=== PATIENT | female | born 1990 | race Caucasian/White ===

== ENCOUNTER 2016-08-04 14:17 | Outpatient (CLI) | payer MEDICAID | END 2016-08-04 23:59 | DX: R20.2 Paresthesia of skin (principal) ==

== ENCOUNTER 2017-01-18 06:14 | Outpatient (CLI) | payer MEDICAID | END 2017-01-18 06:15 | disposition home or self-care (01) | LOC: LAB.R 06:14 | PROVIDERS: ATTEND Nurse Practitioner Gerontology | DX: Z11.3 Encounter for screening for infections with a predominantly sexual mode of transmission (principal) | CPT/HCPCS: 87491; 87591 ==

== ENCOUNTER 2018-01-27 08:42 | Outpatient (CLI) | payer MEDICAID ==
--- NOTE | 2018-01-27 10:40 | Ultrasound Report ---
Procedure Date: 01/27/2018 Accession Number: [id number] / [id number] Procedure: US - Breast Unilateral Limited CPT Code: FULL RESULT: EXAM: Breast Unilateral Limited, Breast Unilateral Limited DATE: 01/27/2018 9:59 AM CLINICAL HISTORY: LT BREAST LUMP COMPARISON: None. TECHNIQUE: Grayscale and limited color Doppler ultrasound images of the palpable lump region of the left breast were obtained. FINDINGS: A 2 mm tall, 5 mm wide cystic area 1 cm deep to the skin with a ducts leading towards the skin surface is identified. There is no associated abnormality by color Doppler and no solid soft tissue mass component. Findings are consistent with a sebaceous cyst. IMPRESSION: Sebaceous cyst. Benign finding. BI-RADS 2 RADIA
--- NOTE | 2018-01-27 10:40 | Ultrasound Report ---
Procedure Date: 01/27/2018 Accession Number: [id number] / [id number] Procedure: US - Breast Unilateral Limited CPT Code: FULL RESULT: EXAM: Breast Unilateral Limited, Breast Unilateral Limited DATE: 01/27/2018 9:59 AM CLINICAL HISTORY: LT BREAST LUMP COMPARISON: None. TECHNIQUE: Grayscale and limited color Doppler ultrasound images of the palpable lump region of the left breast were obtained. FINDINGS: A 2 mm tall, 5 mm wide cystic area 1 cm deep to the skin with a ducts leading towards the skin surface is identified. There is no associated abnormality by color Doppler and no solid soft tissue mass component. Findings are consistent with a sebaceous cyst. IMPRESSION: Sebaceous cyst. Benign finding. BI-RADS 2 RADIA
== END 2018-01-27 08:43 | disposition home or self-care (01) ==
LOC: DI 08:42
PROVIDERS: ATTEND Nurse Practitioner
DX: N60.82 Other benign mammary dysplasias of left breast (principal); N60.81 Other benign mammary dysplasias of right breast
CPT/HCPCS: 76642

== ENCOUNTER 2018-11-24 13:48 | Outpatient (CLI) | payer MEDICAID ==
--- NOTE | 2018-11-24 15:29 | XRAY Report ---
Reason: JAW PAIN Procedure Date: 11/24/2018 Accession Number: [id number] / [id number] Procedure: XR - Mandible Bilat CPT Code: FULL RESULT: EXAM: MANDIBLE RADIOGRAPHY EXAM DATE: 11/24/2018 02:18 PM. HISTORY: Jaw pain. COMPARISONS: None. TECHNIQUE: 4 views. FINDINGS: Bones: Normal. No fractures or bone lesions. Temporomandibular Joints: Normal. The temporomandibular joints are normally located and symmetric. Sinuses: Normal. No opacities or fluid levels. Other: Normal. No soft tissue swelling. IMPRESSION: Normal mandible radiography. RADIA
== END 2018-11-24 13:49 | disposition home or self-care (01) ==
LOC: DI 13:48
PROVIDERS: ATTEND Family Medicine
DX: R68.84 Jaw pain (principal)
CPT/HCPCS: 70110

== ENCOUNTER 2019-03-22 08:50 | Emergency (ER) | payer MEDICAID ==
[2019-03-22 09:14] VITALS: BP 151/64
[2019-03-22] MEDS ORDERED: DEXAMETHASONE 10 MG/ML VIAL PO STA (09:32)
[2019-03-22] MEDS ORDERED: CHERRY SYRUP 10 ML UDC PO ONE (09:32)
--- NOTE | 2019-03-22 09:35 | ED Physician Documentation ---
PD HPI URI - Stated complaint Stated Complaint: COLD SX/SORE THROAT - Chief complaint Chief Complaint: General - History obtained from History obtained from: Patient - History of Present Illness Timing - onset: How many days ago (2) Timing duration: Days (2) Timing details: Gradual onset, Still present Associated symptoms: Nasal congestion, Rhinorrhea, Sore throat, Dry cough Contributing factors: Sick contact Improves by: Rest, Medication Similar symptoms before: Diagnosis (URI) Recently seen: Not recently seen - Additional information Additional information: 28-year-old female with a 2-day history of cough congestion and shakiness has been taking some Dimetapp at night. She states that she has coughed up some blood-tinged sputum and she has not had fever. She does have a sore throat and muffled hearing from the right ear. Review of Systems Constitutional: reports: Fatigue, Sweats. denies: Fever Eyes: denies: Decreased vision Ears: reports: Loss of hearing Nose: reports: Rhinorrhea / runny nose, Congestion Throat: reports: Sore throat Cardiac: denies: Chest pain / pressure, Palpitations Respiratory: reports: Cough. denies: Dyspnea PD PAST MEDICAL HISTORY - Past Medical History Past Medical History: No - Past Surgical History Past Surgical History: No - Present Medications Home Medications: Ambulatory Orders Medication Instructions Recorded Confirmed Cyclobenzaprine [Flexeril] 10 mg PO TID PRN #20 tablet 06/22/15 Polyethylene Glycol 3350 [Miralax] 17 gm PO DAILY PRN #1 bottle 06/22/15 Azithromycin [Zithromax] 250 mg PO DAILY #6 tablet 03/22/19 Benzonatate [Tessalon Perle] 100 - 200 mg PO TID PRN #30 capsule 03/22/19 - Allergies Allergies/Adverse Reactions: Allergies Allergy/AdvReac Type Severity Reaction Status Date / Time No Known Drug Allergies Allergy Verified 06/22/15 11:37 - Social History Does the pt smoke?: No Smoking Status: Never smoker Does the pt drink ETOH?: No Does the pt have substance abuse?: No - Immunizations Immunizations are current?: Yes - POLST Patient has POLST: No PD ED PE NORMAL - Vitals Vital signs reviewed: Yes (tachypneic and hypertensive) - General General: Alert and oriented X 3, No acute distress, Well developed/nourished, Other (The patient appears anxious ) - HEENT HEENT: Atraumatic, PERRL, EOMI, Other (right TM is clear the left is inflamed. The pharynx is inflamed with swelling and mild exudate. 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, No motor deficit, No sensory deficit, Normal speech Eye Opening: Spontaneous Motor: Obeys Commands Verbal: Oriented GCS Score: 15 - Psych Psych: Normal mood, Normal affect Results - Vitals Vitals: Vital Signs - 24 hr 03/22/19 09:08 Temperature 36.6 C Heart Rate 94 Respiratory 28 H Rate Blood Pressure 151/64 H O2 Saturation 100 Oxygen O2 Source Nasal cannula - Labs Labs: Laboratory Tests 03/22/19 09:20 Group A Strep Rapid Negative PD MEDICAL DECISION MAKING - ED course Complexity details: reviewed results, re-evaluated patient, considered differential, d/w patient ED course: 28 y/o female with URI, cough and sore throat has a negative rapid strep and evidence of OM on the left. I have cautioned the patient that the infection underlying is likely viral but abx will help with the OM. She is given decadron and we will put her on a course of azithro Departure - Departure Disposition: 01 Home, Self Care Clinical Impression: Otitis media Qualifiers: Otitis media type: suppurative Laterality: left Recurrence: non-recurrent Spontaneous tympanic membrane rupture: without spontaneous rupture Condition: Stable Instructions: ED Otitis Media Acute Adult, ED Upper Resp Infec Abx Tx Follow-Up: Shayy Wells, FI[employer] [Primary Care Provider] - Prescriptions: Azithromycin [Zithromax] 250 mg PO DAILY #6 tablet Benzonatate [Tessalon Perle] 100 - 200 mg PO TID PRN #30 capsule PRN Reason: Cough
== END 2019-03-22 10:16 | disposition home or self-care (01) ==
LOC: ED 08:50
DX: H66.002 Acute suppurative otitis media without spontaneous rupture of ear drum, left ear (principal)
CPT/HCPCS: 87070; 87430; 99283; A9270

== ENCOUNTER 2019-07-06 13:53 | Outpatient (CLI) | payer MEDICAID ==
--- NOTE | 2019-07-06 14:31 | XRAY Report ---
Reason: JOINT PAIN Procedure Date: 07/06/2019 Accession Number: [id number] / [id number] Procedure: XRN - Hip w/Pelvis 2-3V RT CPT Code: Final Report FULL RESULT: EXAM: RIGHT HIP RADIOGRAPHY EXAM DATE: 07/06/2019 02:07 PM. CLINICAL HISTORY: JOINT PAIN. COMPARISON: LUMBAR SPINE 2 VIEW 01/09/2016 10:51 AM. TECHNIQUE: 2 views. FINDINGS: Bones: Normal. No fractures or bone lesion. Joints: Normal. No dislocation. The hip joint space is preserved. Soft Tissues: Normal. No soft tissue swelling. IMPRESSION: Normal hip radiography. RADIA
== END 2019-07-06 13:54 | disposition home or self-care (01) ==
LOC: DI.N 13:53
PROVIDERS: ATTEND Family Medicine
DX: M25.551 Pain in right hip (principal)

== ENCOUNTER 2019-08-13 12:04 | Emergency (ER) | payer MEDICAID ==
[2019-08-13 12:13] VITALS: BP 123/62
[2019-08-13 12:27] LABS: BASOPHILS % (AUTO) 0.5 %; EOSINOPHILS # (AUTO) 0.1 10^3/uL (0.0-0.7); EOSINOPHILS % (AUTO) 1.1 %; HGB - HEMOGLOBIN 14.4 g/dL (12.0-16.0); LYMPHOCYTES % (AUTO) 31.5 %; MEAN CORPUSCULAR HEMOGLOBIN 30.1 pg (27.0-31.0); MEAN CORPUSCULAR HGB CONC 31.6 g/dL (32.0-36.0); MEAN CORPUSCULAR VOLUME 95.2 fL (81.0-99.0); MEAN PLATELET VOLUME 8.3 fL (7.9-10.8); MONOCYTES # (AUTO) 0.4 10^3/uL (0.0-1.0); MONOCYTES % (AUTO) 6.4 %; NEUTROPHILS # (AUTO) 3.8 10^3/uL (1.5-6.6); NEUTROPHILS % (AUTO) 60.2 %; PLT - PLATELET COUNT 226 10^3/uL (130-450); RED BLOOD COUNT 4.78 10^6/uL (4.20-5.40); WHITE BLOOD COUNT 6.3 x10^3/uL (4.8-10.8)
[2019-08-13 12:48] LABS: ALBUMIN 4.3 g/dL (3.2-5.5); ALBUMIN/GLOBULIN RATIO 1.5 (1.0-2.2); BILIRUBIN,TOTAL 1.2 mg/dL (0.2-1.0); CALCIUM 9.5 mg/dL (8.5-10.3); CREATININE 0.6 mg/dL (0.4-1.0); TOTAL PROTEIN 7.2 g/dL (6.7-8.2)
--- NOTE | 2019-08-13 13:09 | ED Physician Documentation ---
PD HPI ABD PAIN - Stated complaint Stated Complaint: L SIDE ABD/BACK PX - Chief complaint Chief Complaint: Abd Pain - History obtained from History obtained from: Patient - History of Present Illness Timing - onset: Yesterday Timing - duration: Days (2) Timing - details: Gradual onset, Still present, Waxing and waning Quality: Cramping, Aching, Pain Location: LLQ Radiation: Left flank. No: Chest Improved by: No: Eating, Position Worsened by: Moving, Breathing, Palpation. No: Eating, Position Associated symptoms: Nausea. No: Fever, Diarrhea, Constipation, Dysuria, Hematuria, Chest pain, Near syncope / syncope, Loss of appetite Similar symptoms before: Has not had sx before Recently seen: Not recently seen Review of Systems Constitutional: denies: Fever, Chills Nose: denies: Rhinorrhea / runny nose, Congestion Throat: denies: Sore throat Respiratory: denies: Cough GI: reports: Abdominal Pain, Nausea. denies: Abdominal Swelling, Vomiting, Constipation, Diarrhea, Bloody / black stool : reports: LMP (07/23/19). denies: Dysuria, Frequency, Hematuria, Discharge, Missed period Skin: denies: Rash, Lesions Neurologic: denies: Generalized weakness, Near syncope PD PAST MEDICAL HISTORY - Past Medical History Cardiovascular: None Respiratory: None Neuro: None Endocrine/Autoimmune: None GI: None - Past Surgical History Past Surgical History: No - Present Medications Home Medications: Ambulatory Orders Medication Instructions Recorded Confirmed Cyclobenzaprine [Flexeril] 10 mg PO TID PRN #20 tablet 06/22/15 Polyethylene Glycol 3350 [Miralax] 17 gm PO DAILY PRN #1 bottle 06/22/15 Azithromycin [Zithromax] 250 mg PO DAILY #6 tablet 03/22/19 Benzonatate [Tessalon Perle] 100 - 200 mg PO TID PRN #30 capsule 03/22/19 Docusate Sodium 100 mg PO DAILY #30 capsule 08/13/19 Naproxen 500 mg PO BID #20 tablet 08/13/19 - Allergies Allergies/Adverse Reactions: Allergies Allergy/AdvReac Type Severity Reaction Status Date / Time No Known Drug Allergies Allergy Verified 06/22/15 11:37 - Social History Does the pt smoke?: No Smoking Status: Never smoker Does the pt drink ETOH?: No Does the pt have substance abuse?: No - Immunizations Immunizations are current?: Yes - POLST Patient has POLST: No PD ED PE NORMAL - Vitals Vital signs reviewed: Yes - General General: Alert and oriented X 3, No acute distress, Well developed/nourished - HEENT HEENT: Moist mucous membranes, Pharynx benign - Neck Neck: Supple, no meningeal sign, No adenopathy - Cardiac Cardiac: RRR, No murmur - Respiratory Respiratory: Clear bilaterally - Abdomen Abdomen: Normal bowel sounds, Soft, Non distended, No organomegaly, Other (tender LLQ and left lateral abd to the left flank. No rash nor sores. ) - Female Female : Deferred - Rectal Rectal: Deferred - Derm Derm: Normal color, Warm and dry, No rash - Extremities Extremities: No edema, No calf tenderness / cord Results - Vitals Vitals: Vital Signs - 24 hr 08/13/19 12:09 Temperature 36.1 C L Heart Rate 73 Respiratory 16 Rate Blood Pressure 123/62 O2 Saturation 99 Oxygen O2 Source Room air - Labs Labs: Laboratory Tests 08/13/19 08/13/19 08/13/19 12:24 12:24 12:30 WBC 6.3 RBC 4.78 Hgb 14.4 Hct 45.5 MCV 95.2 MCH 30.1 MCHC 31.6 L RDW 13.0 Plt Count 226 MPV 8.3 Neut # (Auto) 3.8 Lymph # (Auto) 2.0 [place] # (Auto) 0.4 Eos # (Auto) 0.1 Baso # (Auto) 0.0 Absolute Nucleated RBC 0.00 Nucleated RBC % 0.0 Sodium 140 Potassium 3.9 Chloride 106 Carbon Dioxide 27 Anion Gap 7.0 BUN 7 Creatinine 0.6 Estimated GFR (MDRD) 117 Glucose 91 Calcium 9.5 Total Bilirubin 1.2 H AST 16 ALT 13 Alkaline Phosphatase 41 L Total Protein 7.2 Albumin 4.3 Globulin 2.9 Albumin/Globulin Ratio 1.5 Lipase 27 Urine Color YELLOW Urine Clarity CLEAR Urine pH 7.0 Ur Specific [place] 1.010 Urine Protein NEGATIVE Urine Glucose (UA) NEGATIVE Urine Ketones NEGATIVE Urine Occult Blood NEGATIVE Urine Nitrite NEGATIVE Urine Bilirubin NEGATIVE Urine Urobilinogen 0.2 (NORMAL) Ur Leukocyte Esterase SMALL H Urine RBC None Seen Urine WBC 4-5 Ur Squamous Epith Cells FEW Squamous Urine Bacteria Rare Ur Microscopic Review INDICATED Urine Culture Comments INDICATED Urine HCG, Qual NEGATIVE - Rads (name of study) KUB CT Radiology: Prelim report reviewed (no acute process to account for pain), See rad report PD MEDICAL DECISION MAKING - ED course Complexity details: reviewed results (UA, labs, and CT without obvious finding. Consider US to ensure good ovarian flow, though CT did not show any inflammation. ), re-evaluated patient, considered differential (opted for CT over U/S as pain a bit higher and to flank. Consider stone, divertic, ovarian cyst leaking, other process. Has some tenderness to palpation along muscle line so could be oblique rectus muscle. ), d/w patient Departure - Departure Disposition: 01 Home, Self Care Clinical Impression: Left lower quadrant abdominal pain Condition: Stable Record reviewed to determine appropriate education?: Yes Instructions: ED Abdominal Pain Unkn Cause Follow-Up: OSMAN KASPER MD [Primary Care Provider] - Prescriptions: Docusate Sodium 100 mg PO DAILY #30 capsule Naproxen 500 mg PO BID #20 tablet Comments: This sounds likely to be either muscular pain or some lower intestinal pain. The CT scan did not show any acute obvious abnormality. If persistent pain in the area, follow-up with your primary care and they could consider a pelvic ultrasound to evaluate the ovaries and such. There was no obvious abnormality noted on the CT scan of them. For now I would suggest using some anti-inflammatory such as naproxen 2 or 3 times daily for the next week. Add Tylenol every 4-6 hours if needed for pain. Also a daily stool softener for the next week or so. Recheck if not improved well over the next several days. Discharge Date/Time: 08/13/19 15:18
[2019-08-13 13:22] LABS: BILIRUBIN,URINE NEGATIVE (NEGATIVE); GLUCOSE, URINE (UA) NEGATIVE (NEGATIVE); KETONES,URINE (UA) NEGATIVE (NEGATIVE); LEUKOCYTE ESTERASE, URINE SMALL (NEGATIVE); NITRITE,URINE NEGATIVE (NEGATIVE); OCCULT BLOOD,URINE NEGATIVE (NEGATIVE); PROTEIN,URINE NEGATIVE (NEGATIVE); UROBILINOGEN,URINE 0.2 (NORMAL) E.U./dL (NORMAL)
[2019-08-13 13:23] LABS: CLARITY,URINE CLEAR (CLEAR); HCG UR QUAL NEGATIVE
[2019-08-13] MEDS ORDERED: ACETAMINOPHEN 325 MG TABLET PO STA (13:29)
[2019-08-13] MEDS ORDERED: IBUPROFEN 600 MG TABLET PO STA (13:29)
[2019-08-13 13:30] LABS: BACTERIA,URINE Rare /HPF (None Seen); RBC,URINE None Seen /HPF (0-5); SQUAMOUS EPITHELIAL CELL,UR FEW Squamous (<= Few)
[2019-08-13] MEDS: ONDANSETRON ODT 4 MG TABLET TL STA ×2 (13:36→14:21)
--- NOTE | 2019-08-13 14:28 | CT Report ---
Reason: left abd/flank pain for 4 days Procedure Date: 08/13/2019 Accession Number: [id number] / [id number] Procedure: CT - Abdomen/Pelvis WO CPT Code: Final Report FULL RESULT: EXAM: CT ABDOMEN AND PELVIS (CT KUB) EXAM DATE: 08/13/2019 01:56 PM. CLINICAL HISTORY: Left abd/flank pain for 4 days. COMPARISONS: None. TECHNIQUE: Routine axial helical CT imaging was performed through the abdomen and pelvis without IV contrast. Reconstructions: Coronal and sagittal. In accordance with CT protocol optimization, one or more of the following dose reduction techniques were utilized for this exam: automated exposure control, adjustment of mA and/or KV based on patient size, or use of iterative reconstructive technique. FINDINGS: Lung Bases: Unremarkable. Right Kidney/Ureter: No stones, hydronephrosis, or hydroureter. No perinephric fat stranding. Left Kidney/Ureter: No stones, hydronephrosis, or hydroureter. No perinephric fat stranding. Other Solid Organs: Noncontrast images of the solid organs are grossly unremarkable. Gallbladder/Bile Ducts: Unremarkable. Peritoneal Cavity: No dilated or thick-walled bowel. There is a small amount of free fluid within the pelvis. No intraperitoneal free air. No enlarged mesenteric or retroperitoneal lymph nodes. The appendix is normal. Pelvic Organs: No bladder stones or wall thickening. Noncontrast images of the visualized pelvic organs are unremarkable. Vasculature: Unremarkable. Other: None. IMPRESSION: Negative noncontrast CT of the abdomen and pelvis. No urinary tract stones or obstruction. RADIA
== END 2019-08-13 15:18 | disposition home or self-care (01) ==
LOC: ED 12:04
DX: R10.32 Left lower quadrant pain (principal)
CPT/HCPCS: 36415; 74176; 80053; 81001; 81025; 83690; 85025; 87086; 99284; A9270; 81003

== ENCOUNTER 2019-08-21 17:04 | Outpatient (CLI) | payer MEDICAID ==
--- NOTE | 2019-08-22 15:41 | Ultrasound Report ---
Reason: ABDOMINAL PAIN,LLQ Procedure Date: 08/21/2019 Accession Number: [id number] / [id number] Procedure: US - Pelvic w/Transvaginal CPT Code: Final Report FULL RESULT: EXAM: PELVIC ULTRASOUND EXAM DATE: 08/21/2019 05:40 PM. CLINICAL HISTORY: ABDOMINAL PAIN, LLQ. COMPARISON: ABDOMEN/PELVIS W/O 08/13/2019 1:54 PM. TECHNIQUE: Realtime transabdominal pelvic scan performed to identify the uterus and adnexa and as an overview of other pelvic structures, followed by transvaginal scan to provide greater detail of the uterus and adnexa, with static image documentation. FINDINGS: Uterus: 8.9 x 4.4 x 5.9 cm, volume 120 cc. Anteverted position. Normal overall size and echotexture. Masses: None. Endometrium: 11 mm. Mild heterogeneity without evidence of focal abnormality. Cervix: Unremarkable. Right Ovary: 3.2 x 2.1 x 2.0 cm, volume 7.0 cc. Normal echotexture and blood flow. Left Ovary: 2.5 x 2.5 x 2.2 cm, volume 7.3 cc. Normal echotexture and blood flow. Free Fluid: None. Other: None. IMPRESSION: Negative pelvic ultrasound. No sonographic findings to account for the patient's presentation. RADIA
== END 2019-08-21 17:05 | disposition home or self-care (01) ==
LOC: DI 17:04
PROVIDERS: ATTEND Family Medicine
DX: R10.32 Left lower quadrant pain (principal)
CPT/HCPCS: 76830; 76856

== ENCOUNTER 2019-10-10 17:00 | Outpatient (CLI) | payer MEDICAID ==
[2019-10-11 21:05] LABS: CANDIDA GROUP DNA POSITIVE (NEGATIVE); CANDIDA KRUSEI DNA NEGATIVE (NEGATIVE); TRICHOMONAS VAGINALIS DNA NEGATIVE (NEGATIVE)
== END 2019-10-10 23:59 | disposition home or self-care (01) ==
LOC: LAB.R 17:00
PROVIDERS: ATTEND Obstetrics & Gynecology
DX: N76.0 Acute vaginitis (principal); B96.89 Other specified bacterial agents as the cause of diseases classified elsewhere
CPT/HCPCS: 87661; 87801

== ENCOUNTER 2020-05-21 08:00 | Outpatient (CLI) | payer MEDICAID | END 2020-05-21 23:59 | disposition home or self-care (01) | LOC: LAB.WCP 08:00 | PROVIDERS: ATTEND Physician Assistant Medical | DX: Z71.89 Other specified counseling (principal) | CPT/HCPCS: 36415; 86317 ==

== ENCOUNTER 2020-05-22 08:00 | Outpatient (CLI) | payer MEDICAID | END 2020-05-22 23:59 | disposition home or self-care (01) | LOC: LAB.WCP 08:00 | PROVIDERS: ATTEND Physician Assistant Medical | DX: Z71.89 Other specified counseling (principal) | CPT/HCPCS: 36415; 81599; 86480 ==

== ENCOUNTER 2020-07-23 07:00 | Outpatient (CLI) | payer MEDICAID | END 2020-07-23 23:59 | disposition home or self-care (01) | LOC: LAB.N 07:00 | PROVIDERS: ATTEND Family Medicine | DX: R82.81 Pyuria (principal) | CPT/HCPCS: 87086 ==

== ENCOUNTER 2020-08-08 20:02 | Emergency (ER) | payer MEDICAID ==
[2020-08-08 20:33] LABS: BASOPHILS % (AUTO) 0.4 %; EOSINOPHILS # (AUTO) 0.1 10^3/uL (0.0-0.7); EOSINOPHILS % (AUTO) 1.3 %; HGB - HEMOGLOBIN 15.3 g/dL (12.0-16.0); LYMPHOCYTES # (AUTO) 2.6 10^3/uL (1.5-3.5); LYMPHOCYTES % (AUTO) 34.9 %; MEAN CORPUSCULAR HEMOGLOBIN 30.6 pg (27.0-31.0); MEAN CORPUSCULAR VOLUME 92.8 fL (81.0-99.0); MEAN PLATELET VOLUME 8.1 fL (7.9-10.8); MONOCYTES # (AUTO) 0.5 10^3/uL (0.0-1.0); NEUTROPHILS # (AUTO) 4.2 10^3/uL (1.5-6.6); NEUTROPHILS % (AUTO) 56.1 %; PLT - PLATELET COUNT 275 10^3/uL (130-450); RED CELL DISTRIBUTION WIDTH 12.6 % (12.0-15.0); WHITE BLOOD COUNT 7.4 x10^3/uL (4.8-10.8)
[2020-08-08 20:42] LABS: BILIRUBIN,URINE NEGATIVE (NEGATIVE); CLARITY,URINE CLEAR (CLEAR); GLUCOSE, URINE (UA) NEGATIVE (NEGATIVE); HCG UR QUAL NEGATIVE; KETONES,URINE (UA) NEGATIVE (NEGATIVE); LEUKOCYTE ESTERASE, URINE TRACE (NEGATIVE); NITRITE,URINE NEGATIVE (NEGATIVE); OCCULT BLOOD,URINE NEGATIVE (NEGATIVE); PROTEIN,URINE NEGATIVE (NEGATIVE); UROBILINOGEN,URINE 0.2 (NORMAL) E.U./dL (NORMAL)
[2020-08-08 20:48] LABS: ALBUMIN 4.4 g/dL (3.2-5.5); ALBUMIN/GLOBULIN RATIO 1.4 (1.0-2.2); CALCIUM 8.9 mg/dL (8.5-10.3); CREATININE 0.7 mg/dL (0.4-1.0); TOTAL PROTEIN 7.5 g/dL (6.7-8.2)
[2020-08-08 20:53] LABS: BACTERIA,URINE Rare /HPF (None Seen); RBC,URINE None Seen /HPF (0-5); SQUAMOUS EPITHELIAL CELL,UR FEW Squamous (<= Few)
--- NOTE | 2020-08-08 21:02 | ED Physician Documentation ---
PD HPI ABD PAIN - Stated complaint Stated Complaint: BACK PX - Chief complaint Chief Complaint: Abd Pain - History obtained from History obtained from: Patient - History of Present Illness Timing - onset: How many months ago (1) Timing - duration: Months (1) Timing - details: Gradual onset, Waxing and waning Quality: Aching, Sharp, Pain Location: LLQ Radiation: Left flank Improved by: Laying still. No: BM Worsened by: Moving. No: Palpation Associated symptoms: Nausea, Constipation (somewhat decreased with BMs about every 3rd day. Using Doccusate.). No: Fever, Vomiting, Diarrhea, Dysuria (had UA concerning for UTI and was on Bactrim for 5 days, but no change in the pain. She says urine culture resulted negative though.), Hematuria, Vaginal bleeding, Vaginal dc Recently seen: Clinic (Initially seen in clinic and had UA suggestive UTI and Rx with abx. Not improved. Then treated with NSAIDs, and then seen in Walk In and Rx with muscle relaxant. Still not improved.) Review of Systems Constitutional: denies: Fever, Chills Nose: denies: Rhinorrhea / runny nose, Congestion Throat: denies: Sore throat Cardiac: denies: Chest pain / pressure Respiratory: denies: Cough GI: reports: Abdominal Pain, Nausea. denies: Vomiting, Constipation (she says not constipated but is having BMs every 3 days, not large nor hard.), Diarrhea, Bloody / black stool : denies: Dysuria, Frequency, Discharge Skin: denies: Rash PD PAST MEDICAL HISTORY - Past Medical History Past Medical History: No Cardiovascular: None Respiratory: None Neuro: None Endocrine/Autoimmune: None GI: None CREDIT CHECKER: None : None HEENT: None Psych: None Musculoskeletal: None Derm: None - Past Surgical History Past Surgical History: No - Present Medications Home Medications: Ambulatory Orders Medication Instructions Recorded Confirmed HYDROcod/ACETAM 5/325 [[place] 5/325] 1 ea PO Q6H PRN #10 tab 08/08/20 Naproxen Sodium [Anaprox Ds] 550 mg PO BID #20 tab 08/08/20 polyethylene glycoL 3350 [Miralax] 17 gm PO BID #1 bottle 08/08/20 tiZANidine [Zanaflex] 4 mg PO Q8H PRN #25 tab 08/08/20 - Allergies Allergies/Adverse Reactions: Allergies Allergy/AdvReac Type Severity Reaction Status Date / Time No Known Drug Allergies Allergy Verified 08/08/20 20:08 - Social History Does the pt smoke?: No Smoking Status: Never smoker Does the pt drink ETOH?: No Does the pt have substance abuse?: No - Immunizations Immunizations are current?: Yes - POLST Patient has POLST: No PD ED PE NORMAL - Vitals Vital signs reviewed: Yes - General General: Alert and oriented X 3, Well developed/nourished - Neck Neck: Supple, no meningeal sign, No adenopathy - Cardiac Cardiac: RRR, No murmur - Respiratory Respiratory: Clear bilaterally - Abdomen Abdomen: Normal bowel sounds, Soft, Non distended, No organomegaly, Other (mild tender without guarding nor percussion tenderness left mid abd. No CVA tenderness and no muscular point tenderness on back. Some guarded ROM of the low back due to discomfort.) - Female Female : Deferred - Rectal Rectal: Deferred - Back Back: No CVA TTP, No spinal TTP - Derm Derm: Normal color, Warm and dry, No rash - Extremities Extremities: No tenderness to palpate, No edema, No calf tenderness / cord Results - Vitals Vitals: Vital Signs - 24 hr 08/08/20 08/08/20 08/08/20 20:08 21:15 23:00 Temperature 36.5 C 36.1 C L 36.2 C L Heart Rate 88 94 79 Respiratory 16 22 16 Rate Blood Pressure 134/77 H 145/71 H 132/70 H O2 Saturation 98 96 100 08/09/20 00:25 Temperature 36.2 C L Heart Rate 78 Respiratory 16 Rate Blood Pressure 140/78 H O2 Saturation 100 Oxygen O2 Source Room air - Labs Labs: Laboratory Tests 08/08/20 08/08/20 08/08/20 20:25 20:25 20:25 WBC 7.4 RBC 5.00 Hgb 15.3 Hct 46.4 MCV 92.8 MCH 30.6 MCHC 33.0 RDW 12.6 Plt Count 275 MPV 8.1 Neut # (Auto) 4.2 Lymph # (Auto) 2.6 [place] # (Auto) 0.5 Eos # (Auto) 0.1 Baso # (Auto) 0.0 Absolute Nucleated RBC 0.00 Nucleated RBC % 0.0 Sodium 138 Potassium 3.7 Chloride 103 Carbon Dioxide 23 Anion Gap 12.0 BUN 12 Creatinine 0.7 Estimated GFR (MDRD) 97 Glucose 81 Calcium 8.9 Total Bilirubin 1.0 AST 20 ALT 23 Alkaline Phosphatase 58 Total Protein 7.5 Albumin 4.4 Globulin 3.1 Albumin/Globulin Ratio 1.4 Lipase 24 Urine Color YELLOW Urine Clarity CLEAR Urine pH 6.0 Ur Specific [place] <=1.005 Urine Protein NEGATIVE Urine Glucose (UA) NEGATIVE Urine Ketones NEGATIVE Urine Occult Blood NEGATIVE Urine Nitrite NEGATIVE Urine Bilirubin NEGATIVE Urine Urobilinogen 0.2 (NORMAL) Ur Leukocyte Esterase TRACE H Urine RBC None Seen Urine WBC 0-3 Ur Squamous Epith Cells FEW Squamous Urine Bacteria Rare Ur Microscopic Review INDICATED Urine Culture Comments INDICATED Urine HCG, Qual NEGATIVE - Rads (name of study) abd/pelvic CT Radiology: Prelim report reviewed (no acute findings. Moderate stool burden. ), See rad report PD MEDICAL DECISION MAKING - ED course Complexity details: reviewed results, re-evaluated patient (She got nauseated from the IV pain meds. Initially declined antiemetic, but then subsequently accepted. Improved nausea, and discharged. ), considered differential (consider possible kidney stone, abscess, diverticulitis, etc on left side. Also muscular as some worse with movement. ), d/w patient Departure - Departure Disposition: 01 Home, Self Care Clinical Impression: Acute left flank pain Condition: Stable Record reviewed to determine appropriate education?: Yes Instructions: ED Flank Pain Uncertain Cause Follow-Up: Janina Churchill PA-C [Primary Care Provider] - Prescriptions: Naproxen Sodium [Anaprox Ds] 550 mg PO BID #20 tab polyethylene glycoL 3350 [Miralax] 17 gm PO BID #1 bottle HYDROcod/ACETAM 5/325 [[place] 5/325] 1 ea PO Q6H PRN #10 tab PRN Reason: Pain tiZANidine [Zanaflex] 4 mg PO Q8H PRN #25 tab PRN Reason: Spasms Comments: Your urine test appears normal today. The culture will result in a couple of days. Blood tests are normal. CT scan did not show any obvious cause for the pain. Presume then muscular pain as a possibility. There could be some intestinal pain related to stool or intestinal contractions. Continue with docusate stool softener. To that add MiraLAX twice daily for the next several days to promote good stool output. Use naproxen anti-inflammatory twice daily with food. Add tizanidine muscle relaxant for the pain as well. To that add Tylenol 4 times a day or hydrocodone if needed for worse pain for the short-term. Recheck if not improved well and resolved over the next several days (3 to 5 days). Discharge Date/Time: 08/09/20 00:25
[2020-08-08] MEDS ORDERED: HYDROmorphone 1 MG/ML CARPUJECT IVP STA (21:19)
[2020-08-08] MEDS ORDERED: KETOROLAC 30 MG/ML VIAL IVP STA (21:19)
[2020-08-08] MEDS ORDERED: IOVERSOL 320 100 ML VIAL IVP ONE ×2 (21:39→21:55)
[2020-08-08] MEDS ORDERED: SENNA 8.6 MG TABLET PO STA (22:27)
[2020-08-09] MEDS ORDERED: ONDANSETRON 4 MG/2 ML VIAL IVP STA
[2020-08-09 00:26] VITALS: BP 140/78
--- NOTE | 2020-08-09 07:54 | CT Report ---
PROCEDURE: Abdomen/Pelvis W INDICATIONS: left flank to left mid abd pain for a month CONTRAST: IV CONTRAST: Optiray 320 ml: 100 PO CONTRAST: *NO PO CONTRAST TECHNIQUE: After the administration of intravenous contrast, 5 mm thick sections acquired from the diaphragms to the symphysis. 5 mm thick coronal and sagittal reformats were acquired. For radiation dose reducti on, the following was used: automated exposure control, adjustment of mA and/or kV according to luma ent size. COMPARISON: CT abdomen and pelvis without contrast, 08/13/2019. FINDINGS: Image quality: Excellent. ABDOMEN: Lung bases: Lung bases are clear. Heart size is normal. Solid organs: Liver and spleen are normal in size and enhancement. Gallbladder is normal. Biliary system is non dilated. Pancreas enhances normally. No adrenal nodules. Kidneys demonstrate normal size and enhancement, without hydronephrosis. Peritoneum and bowel: Stomach is distended and filled with debris. Moderate amount stool in colon. N ormal appendix. Bowel loops demonstrate normal wall thickness and caliber. No free fluid or air. Nodes and vessels: No retroperitoneal or mesenteric adenopathy by size criteria. Aorta and inferior vena cava are normal in size. Miscellaneous: No ventral hernias. PELVIS: Genitourinary: Bladder wall thickness is normal. Miscellaneous: No inguinal hernias or adenopathy. Bones: No suspicious bony lesions. No vertebral body compression fractures. IMPRESSION: 1. No acute abnormalities in abdomen or pelvis. No significant discrepancy with the preliminary interpretation. Reviewed by: Freda Perdomo MD on 08/09/2020 7:53 AM [facility] Approved by: Freda Perdomo MD on 08/09/2020 7:53 AM PST Station ID: [id number]
== END 2020-08-09 00:25 | disposition home or self-care (01) ==
LOC: ED 20:02
DX: R10.32 Left lower quadrant pain (principal); R11.0 Nausea; M54.5 Low back pain
CPT/HCPCS: 74177; 80053; 81001; 81025; 83690; 85025; 87086; 96374; 96375; 99284; A9270; J1170; Q9967; 81003

== ENCOUNTER 2020-12-04 13:07 | Outpatient (CLI) | payer MEDICAID ==
--- NOTE | 2020-12-04 17:41 | XRAY Report ---
PROCEDURE: Chest 2 View X-Ray INDICATIONS: CHEST PX TECHNIQUE: 2 view(s) of the chest. COMPARISON: None. FINDINGS: Surgical changes and devices: None. Lungs and pleura: No pleural effusions or pneumothorax. Lungs are clear. Mediastinum: Mediastinal contours are normal. Heart size is normal. Bones and chest wall: No suspicious bony abnormalities. Soft tissues appear unremarkable. IMPRESSION: Chest without acute cardiopulmonary abnormalities. No focal airspace disease. Reviewed by: Jerson Ramirez MD on 12/04/2020 5:40 PM PDT Approved by: Jerson Ramirez MD on 12/04/2020 5:40 PM PDT Station ID: [id number]
== END 2020-12-04 23:59 | disposition home or self-care (01) ==
LOC: DI.N 13:07
PROVIDERS: ATTEND Family Medicine
DX: R07.81 Pleurodynia (principal)

== ENCOUNTER 2021-06-09 22:01 | Emergency (ER) | payer MEDICAID ==
[2021-06-09 22:07] VITALS: BP 142/73
[2021-06-09] MEDS ORDERED: PROCHLORPERAZINE 10 MG/2 ML VIAL IVP STA (23:04)
[2021-06-09] MEDS ORDERED: DEXAMETHASONE 10 MG/ML VIAL PO STA (23:04)
[2021-06-09] MEDS ORDERED: CHERRY SYRUP 10 ML UDC PO ONE (23:04)
[2021-06-09] MEDS ORDERED: diphenhydrAMINE INJ 50 MG/ML VIAL IVP STA (23:04)
--- NOTE | 2021-06-09 23:46 | ED Physician Documentation ---
PD HPI HEADACHE - Stated complaint Stated Complaint: HEAD PX - Chief complaint Chief Complaint: Neuro - History obtained from History obtained from: Patient - Additional information Additional information: Patient is a 31-year-old female with chief complaint of headache. Endorses for right-sided pounding headache with associated nausea vomiting that began earlier today. Headache was not maximal at time of onset and getting progressively worse over the course of the day. She reports attempting to take a nap which seemed to make the headache worse and taking acetaminophen at home without relief. She denies any known history of migraine headache disorder. Denies any head trauma, fever, neck stiffness, blurred vision, double vision, sinus pressure, visual disturbances. Review of Systems Ten Systems: 10 systems reviewed and negative Constitutional: denies: Fever Eyes: denies: Loss of vision Ears: denies: Loss of hearing Nose: denies: Rhinorrhea / runny nose Throat: denies: Dental pain / toothache Cardiac: denies: Chest pain / pressure Respiratory: denies: Dyspnea GI: denies: Abdominal Pain : denies: Dysuria Skin: denies: Rash Musculoskeletal: denies: Neck pain Neurologic: reports: Headache. 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 HEENT: None Psych: None Musculoskeletal: None Derm: None - Past Surgical History Past Surgical History: No - Present Medications Home Medications: Ambulatory Orders Medication Instructions Recorded Confirmed HYDROcod/ACETAM 5/325 [[place] 5/325] 1 ea PO Q6H PRN #10 tab 08/08/20 Naproxen Sodium [Anaprox Ds] 550 mg PO BID #20 tab 08/08/20 polyethylene glycoL 3350 [Miralax] 17 gm PO BID #1 bottle 08/08/20 tiZANidine [Zanaflex] 4 mg PO Q8H PRN #25 tab 08/08/20 - Allergies Allergies/Adverse Reactions: Allergies Allergy/AdvReac Type Severity Reaction Status Date / Time codeine Allergy Itching Verified 06/09/21 22:07 - Social History Does the pt smoke?: No Smoking Status: Never smoker Does the pt drink ETOH?: No Does the pt have substance abuse?: No - Immunizations Immunizations are current?: Yes - POLST Patient has POLST: No PD ED PE NORMAL - Vitals Vital signs reviewed: Yes - General General: Alert and oriented X 3 - HEENT HEENT: Atraumatic, PERRL, Ears normal, Moist mucous membranes, Pharynx benign - Neck Neck: Supple, no meningeal sign, No adenopathy, No JVD - Cardiac Cardiac: RRR - Respiratory Respiratory: No respiratory distress - Abdomen Abdomen: Non tender - Female Female : Deferred - Rectal Rectal: Deferred - Derm Derm: Normal color - Neuro Neuro: Alert and oriented X 3, manager medicare marketing 2-12 intact, No motor deficit, No sensory deficit, Normal speech Results - Vitals Vitals: Vital Signs - 24 hr 06/09/21 06/09/21 06/09/21 22:03 22:13 23:18 Temperature 36.0 C L Heart Rate 87 Respiratory 16 16 16 Rate Blood Pressure 142/73 H O2 Saturation 99 06/09/21 23:39 Temperature Heart Rate 89 Respiratory 16 Rate Blood Pressure O2 Saturation 98 Oxygen O2 Source Room air PD MEDICAL DECISION MAKING - ED course ED course: Patient presented to the emergency department with right-sided headache that she reported is pounding, causing significant pain, disability which was associated with nausea vomiting. She denied any history of previous headache disorder. Her physical exam was reassuring and that she was generally nontoxic with a nonfocal nonlateralizing neurologic exam and without any nuchal rigidity or indications of meningismus. I did initially order medication for symptomatic management of her headache and given that she has not had similar headaches in the past I did order for a head CT however shortly after being provided medications in the emergency department she eloped abruptly from the department. This occurred before my ability to discuss the issue with her however nursing staff reported that she felt uncomfortable with her IV and was potentially having a mild akinesia after the administration of Compazine. Given her overall benign presentation in the emergency department however I do not see compelling reason to contact EMS or law enforcement for a wellness check. Departure - Departure Disposition: ED [place] Clinical Impression: Headache Condition: Fair Discharge Date/Time: 06/09/21 23:40
== END 2021-06-09 23:40 | disposition left against medical advice (07) ==
LOC: ED 22:01
DX: R51.9 Headache, unspecified (principal)
CPT/HCPCS: 96374; 96375; 99283; A9270; J1200

== ENCOUNTER 2021-06-24 11:35 | Emergency (ER) | payer MEDICAID ==
--- NOTE | 2021-06-24 13:56 | ED Physician Documentation ---
PD HPI GI BLEED - Stated complaint Stated Complaint: C+ CHEST PX - History obtained from History obtained from: Patient - History of Present Illness Timing - onset: How many days ago (5) Timing - duration: Days (5) Timing - details: Gradual onset Pain level max: 0 Pain level now: 0 Associated symptoms: No: Vomiting, Coffee ground emesis, Hematemesis, BRBPR, Maroon stool, Black/tarry stool, Diarrhea, Constipation, Abdominal pain Contributing factors: Sick contact, Travel Recently seen: Not recently seen - Additional information Additional information: Patient is a 31-year-old female, has had her 2 Covid vaccinations as well as her booster. She states she tested positive for Covid. Recently returned from [place]. She is concerned about potential pneumonia. Nothing makes it better or worse. Has a occasionally productive cough. Does smoke marijuana. No marijuana for 3 days. Denies any possibility of . 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 HEENT: None Psych: None Musculoskeletal: None Derm: None - Past Surgical History Past Surgical History: No - Present Medications Home Medications: Ambulatory Orders Medication Instructions Recorded Confirmed HYDROcod/ACETAM 5/325 [[place] 5/325] 1 ea PO Q6H PRN #10 tab 08/08/20 Naproxen Sodium [Anaprox Ds] 550 mg PO BID #20 tab 08/08/20 polyethylene glycoL 3350 [Miralax] 17 gm PO BID #1 bottle 08/08/20 tiZANidine [Zanaflex] 4 mg PO Q8H PRN #25 tab 08/08/20 Benzonatate [Tessalon] 200 mg PO TID PRN #30 cap 06/24/21 Ondansetron Odt [Zofran] 4 mg TL Q6H PRN #10 tablet 06/24/21 - Allergies Allergies/Adverse Reactions: Allergies Allergy/AdvReac Type Severity Reaction Status Date / Time codeine Allergy Itching Verified 06/24/21 14:33 hydromorphone [From Dilaudid] AdvReac Unknown Verified 06/24/21 14:33 - Social History Does the pt smoke?: No Smoking Status: Never smoker Does the pt drink ETOH?: No Does the pt have substance abuse?: No - Immunizations Immunizations are current?: Yes - POLST Patient has POLST: No PD ED PE NORMAL - Vitals Vital signs reviewed: Yes - General General: Alert and oriented X 3, No acute distress - HEENT HEENT: Moist mucous membranes - Neck Neck: Supple, no meningeal sign - Cardiac Cardiac: RRR - Respiratory Respiratory: No respiratory distress, Clear bilaterally - Abdomen Abdomen: Soft, Non tender, Non distended - Derm Derm: Warm and dry - Neuro Neuro: Alert and oriented X 3 Results - Vitals Vitals: Vital Signs - 24 hr 06/24/21 14:19 Temperature 36.9 C Heart Rate 89 Respiratory 20 Rate Blood Pressure 143/102 H O2 Saturation 99 Oxygen O2 Source Room air - Rads (name of study) cxr Radiology: Final report received, EMP read contemporaneously, See rad report PD MEDICAL DECISION MAKING - ED course Complexity details: reviewed results, considered differential, d/w patient ED course: 31-year-old female with Covid. Negative chest x-ray. No hypoxia. No respiratory distress. Afebrile. Well-appearing, nontoxic. Patient counseled regarding signs and symptoms for which I believe and urgent re-evaluation would be necessary. Patient with good understanding of and agreement to plan and is comfortable going home at this time This document was made in part using voice recognition software. While efforts are made to proofread this document, sound alike and grammatical errors may occur. Departure - Departure Disposition: 01 Home, Self Care Clinical Impression: COVID-19 Condition: Good Instructions: ED Viral Syndrome Follow-Up: Janina Churchill PA-C [Primary Care Provider] - Within 1 week Prescriptions: Benzonatate [Tessalon] 200 mg PO TID PRN #30 cap PRN Reason: Cough Ondansetron Odt [Zofran] 4 mg TL Q6H PRN #10 tablet PRN Reason: Nausea / Vomiting Comments: Your x-ray does not show any acute abnormalities today. Your prescription was sent to in [place]. Please follow-up with your doctor as needed for further care. Return if you worsen Discharge Date/Time: 06/24/21 14:46
--- NOTE | 2021-06-24 13:59 | XRAY Report ---
PROCEDURE: Chest 1 View X-Ray INDICATIONS: cough, covid+ TECHNIQUE: One view of the chest was acquired. COMPARISON: 12/04/2020 FINDINGS: Surgical changes and devices: None. Lungs and pleura: No pleural effusions or pneumothorax. Lungs are clear. Mediastinum: Mediastinal contours appear normal. Heart size is normal. Bones and chest wall: No suspicious bony lesions. Overlying soft tissues appear unremarkable. IMPRESSION: Stable examination of the chest without acute cardiopulmonary abnormalities. No focal consolidation s een. Reviewed by: Jerson Ramirez MD on 06/24/2021 1:57 PM PST Approved by: Jerson Ramirez MD on 06/24/2021 1:57 PM PST Station ID: [id number]
[2021-06-24 14:32] VITALS: BP 143/102
== END 2021-06-24 14:46 | disposition home or self-care (01) ==
LOC: ED 11:35
DX: U07.1 COVID-19 (principal)
CPT/HCPCS: 99283

== ENCOUNTER 2021-08-06 18:40 | Outpatient (CLI) | payer MEDICAID ==
--- NOTE | 2021-08-07 10:19 | XRAY Report ---
PROCEDURE: Wrist 3 View RT INDICATIONS: R WRIST PX TECHNIQUE: 3 views of the wrist were acquired. COMPARISON: None FINDINGS: Bones: No fractures or dislocations. No suspicious bony lesions. Soft tissues: No suspicious soft tissue calcifications. IMPRESSION: No fracture. No osseous lesion. If there are persistent symptoms or continued clinical concern for pa thology, then repeat plain film radiographs (7-10 days) or advanced imaging (CT, MR, bone scan) shoul d be considered for further evaluation. Reviewed by: Verna Gregg MD, PhD on 08/07/2021 10:17 AM [facility] Approved by: Verna Gregg MD, PhD on 08/07/2021 10:17 AM [facility] Station ID: [id number]
== END 2021-08-06 23:59 ==
LOC: DI.N 18:40
PROVIDERS: ATTEND Registered Nurse
DX: M25.531 Pain in right wrist (principal)

== ENCOUNTER 2023-01-11 15:16 | Outpatient (CLI) | payer MEDICAID ==
[2023-01-11 18:12] LABS: BASOPHILS % (AUTO) 0.3 %; EOSINOPHILS # (AUTO) 0.1 10^3/uL (0.0-0.7); EOSINOPHILS % (AUTO) 1.1 %; HCT - HEMATOCRIT 43.1 % (37.0-47.0); HGB - HEMOGLOBIN 14.2 g/dL (12.0-16.0); LYMPHOCYTES # (AUTO) 2.7 10^3/uL (1.5-3.5); LYMPHOCYTES % (AUTO) 38.3 %; MEAN CORPUSCULAR HEMOGLOBIN 30.9 pg (27.0-31.0); MEAN CORPUSCULAR HGB CONC 32.9 g/dL (32.0-36.0); MEAN CORPUSCULAR VOLUME 93.7 fL (81.0-99.0); MEAN PLATELET VOLUME 9.3 fL (7.9-10.8); MONOCYTES # (AUTO) 0.5 10^3/uL (0.0-1.0); MONOCYTES % (AUTO) 7.7 %; NEUTROPHILS # (AUTO) 3.7 10^3/uL (1.5-6.6); NEUTROPHILS % (AUTO) 52.5 %; PLT - PLATELET COUNT 261 10^3/uL (130-450); RED CELL DISTRIBUTION WIDTH 13.1 % (12.0-15.0)
[2023-01-11 18:33] LABS: ALBUMIN 4.6 g/dL (3.2-5.5); ALKALINE PHOSPHATASE 50 IU/L (42-121); ALT ALANINE AMINOTRANSFERASE 11 IU/L (10-60); AST ASPARTATE AMINOTRANSFERASE 12 IU/L (10-42); BILIRUBIN,TOTAL 1.3 mg/dL (0.2-1.0); BUN - BLOOD UREA NITROGEN 8 mg/dL (6-20); CALCIUM 9.5 mg/dL (8.5-10.3); CARBON DIOXIDE - CO2 25 mmol/L (21-32); CHLORIDE 109 mmol/L (101-111); CHOL/HDL RATIO 2.5 (<4.4); CHOLESTEROL 129 mg/dL; CREATININE 0.6 mg/dL (0.6-1.3); GFR - MDRD 114 (>89); GLUCOSE 83 mg/dL (74-104); HDL CHOLESTEROL 52 mg/dL; LDL CHOLESTEROL,CALCULATED 64 mg/dL; LDL/HDL RATIO 1.2 (<4.4); POTASSIUM 3.6 mmol/L (3.5-4.5); SODIUM 138 mmol/L (135-145); TOTAL PROTEIN 6.9 g/dL (6.4-8.9); TRIGLYCERIDES 67 mg/dL (48-352); VLDL CHOLESTEROL 13 mg/dL
[2023-01-11 18:47] LABS: THYROID STIMULATING HORMONE 1.46 uIU/mL (0.34-5.60)
== END 2023-01-11 15:17 | disposition home or self-care (01) ==
LOC: LAB.N 15:16
PROVIDERS: ATTEND Physician Assistant Medical
DX: Z00.00 Encounter for general adult medical examination without abnormal findings (principal)
CPT/HCPCS: 36415; 80053; 80061; 83721; 84443; 85025

== ENCOUNTER 2023-01-14 09:40 | Outpatient (CLI) | payer MEDICAID ==
[2023-01-14] MEDS ORDERED: iohexoL-300 100 ML VIAL ONE (09:49)
[2023-01-14] MEDS ORDERED: DIATR MEGLU/DIATRIZOATE SODIUM 120 ML BOTTLE ONE (09:50)
[2023-01-14] MEDS ORDERED: DIATRIZOATE MEGLU/DIATRIZO SOD 30 ML BOTTLE PO ONE (12:08)
[2023-01-14] MEDS ORDERED: iohexoL-300 100 ML VIAL IVP ONE (12:08)
--- NOTE | 2023-01-14 16:40 | CT Report ---
PROCEDURE: ABDOMEN/PELVIS W INDICATIONS: ABD PAIN CONTRAST: 100ml Omni 300 TECHNIQUE: After the administration of oral and intravenous contrast, 5 mm thick sections acquired from the diap hragms to the symphysis. 5 mm thick coronal and sagittal reformats were acquired. For radiation dos e reduction, the following was used: automated exposure control, adjustment of mA and/or kV accordin g to patient size. COMPARISON: CT abdomen 08/08/2020 FINDINGS: Image quality: Excellent. Lung bases and heart: Unremarkable. Liver: No solid mass. Gallbladder and biliary tree: Spleen: No splenomegaly. Pancreas: No pancreatic ductal dilation. Adrenals: No adrenal nodule. Kidneys and ureters: No hydronephrosis. No renal cystic lesion which requires follow up. No solid mas s. Bowel and peritoneum: No bowel distension. No pathologic free fluid. The appendix is not identified, but there is no pericecal inflammatory changes to suggest acute appendicitis. Lymph nodes: No central or retroperitoneal adenopathy. Vessels: No infrarenal aortic aneurysm. PELVIS Reproductive organs: Unremarkable. Bladder: No abnormal wall thickening, accounting for underdistension. Pelvic lymph nodes: No pelvic adenopathy by size criteria. Bones: Right greater than left sacroiliitis. Other: No significant ventral or inguinal hernia. IMPRESSION: No acute abnormality. Sacroiliitis, right greater than left. Findings can be associated with inflammatory bowel disease. Reviewed by: Lion Rivero on 01/14/2023 4:39 PM PDT Approved by: Lion Rivero on 01/14/2023 4:39 PM PDT Station ID: [id number]
--- NOTE | 2023-01-15 09:37 | Ultrasound Report ---
ULTRASOUND OF LEFT AXILLA: 01/14/2023 CLINICAL: Palpable left axilla lump. No prior exams were available for comparison. Color flow and real-time ultrasound of the left axilla were performed. Gardner scale images of the real -time examination were reviewed. No significant abnormalities were seen sonographically in the left axilla in the region of the palpab le abnormality and pain. A few small lymph nodes which are normal in appearance. No cortical thickeni ng. Preserved fatty hilum and circumscribed margins. IMPRESSION: INCOMPLETE: NEEDS ADDITIONAL IMAGING EVALUATION No sonographic evidence of malignancy. Mammogram is recommended in this younger patient with a palpable abnormality. Exam findings were conveyed to the patient. Patient is advised to monitor for significant change. Cli nical follow-up as needed. This exam was interpreted at Station ID: [id number]. Electronically Signed By: Lex Valero M.D. slc/:01/14/2023 13:36:47 Ultrasound BI-RADS: 0 Indeterminate BI-RADS CATEGORY: (0) - 0 RECOMMENDATION: (ADDMAM) - Recommend additional mammographic views. [id number] Immediate follow-up LATERALITY: (B)
== END 2023-01-14 09:41 | disposition home or self-care (01) ==
LOC: DI 09:40
PROVIDERS: ATTEND Physician Assistant Medical
DX: R10.12 Left upper quadrant pain (principal); R22.2 Localized swelling, mass and lump, trunk; M46.1 Sacroiliitis, not elsewhere classified
CPT/HCPCS: 74177; 76882; Q9963; Q9967

== ENCOUNTER 2023-02-19 07:21 | Outpatient (CLI) | payer MEDICAID ==
--- NOTE | 2023-02-19 09:02 | MRI Report ---
PROCEDURE: LUMBAR SPINE W/WO INDICATIONS: SACROILITIS CONTRAST: GADAVIST 6.9 ML TECHNIQUE: Noncontrast sagittal T1 spin echo and T2 fast spin echo, sagittal STIR, axial T1 and T2 fast spin ech o through the lumbar spine. In cases with scoliosis, additional coronal T2 fast spin echo may be per formed. After the administration of contrast, sagittal and axial T1 spin echo with fat saturation th rough the lumbar spine. COMPARISON: MR spine plain films dated 01/09/2016. FINDINGS: Image quality: Excellent. Alignment and curvature: There is normal bony alignment. Marrow: Marrow is of normal overall signal. No acute vertebral body compression fractures. No susp icious marrow enhancement. Spinal cord: Conus medullaris terminates at the L1-L2 level. Visualized spinal cord demonstrates no rmal signal, without suspicious enhancement. Paraspinous soft tissues: No paravertebral masses or abnormal enhancement. T12-L1: Normal in appearance. L1-L2: Minimal disc bulge. Mild facet hypertrophy. No canal stenosis or foraminal stenosis. L2-L3: Minimal disc bulge. Mild facet hypertrophy. No canal stenosis or foraminal stenosis. L3-L4: Minimal disc bulge. Mild facet hypertrophy. No canal stenosis or foraminal stenosis. L4-L5: Mild disc bulge. Mild facet hypertrophy. No canal stenosis or foraminal stenosis. L5-S1: Annulus tear. Minimal disc bulge. Mild facet hypertrophy. No canal stenosis or foraminal steno sis. IMPRESSION: 1. No canal stenosis or foraminal stenosis. 2. Mild multilevel facet arthropathy. 3. Posterior annulus tear at L5-S1. Reviewed by: Ihsan Sloan MD on 02/19/2023 9:00 AM PDT Approved by: Ihsan Sloan MD on 02/19/2023 9:00 AM PDT Station ID: [id number]
== END 2023-02-19 07:22 | disposition home or self-care (01) ==
LOC: DI 07:21
PROVIDERS: ATTEND Physician Assistant Medical
DX: M46.1 Sacroiliitis, not elsewhere classified (principal); M51.37 Other intervertebral disc degeneration, lumbosacral region; M47.816 Spondylosis without myelopathy or radiculopathy, lumbar region; M47.817 Spondylosis without myelopathy or radiculopathy, lumbosacral region
CPT/HCPCS: 72158; A9585

== ENCOUNTER 2023-03-03 09:42 | Outpatient (CLI) | payer MEDICAID ==
--- NOTE | 2023-03-03 12:29 | Mammography Report ---
BILATERAL DIGITAL DIAGNOSTIC MAMMOGRAM 3D/2D WITH AXILLARY TAIL: 03/03/2023 CLINICAL: Additional evaluation requested from prior study. Palpable left axilla lump. Comparison is made to exams dated: 01/14/2023 ultrasound and 11/30/2008 mammogram - [facility]. Both breasts are heterogeneously dense, which may obscure small masses (category c / 51-75% glandular tissue). No significant masses, calcifications, or other findings are seen in either breast. IMPRESSION: INCOMPLETE: NEEDS ADDITIONAL IMAGING EVALUATION There is no abnormality seen in the left axilla to correspond with the area of clinical concern and p alpable abnormality indicated by triangular markers in the left axilla, however, an ultrasound is rec ommended for further evaluation and is scheduled to immediately follow this examination. Based on the Tyrer Cuzick model (a risk assessment model) the patients lifetime risk is 12.4% and he r 10 year risk is 0.9%. According to the ACR, ACS, and NCCN guidelines, an annual breast MRI exam agustin ng with mammogram is recommended if the patients lifetime risk is 20% or greater. This exam was interpreted at Station ID: [id number]. NOTE: For mammograms, a report in lay terms will be sent to the patient. Approximately 15% of breast malignancies will not be visualized mammographically. In the management of a palpable breast mass, a negative mammogram must not discourage biopsy of a clinically suspicious lesion. Electronically Signed By: Jerson Ramirez M.D. aty/:03/03/2023 10:41:23 ACR BI-RADS Category 0: Incomplete 3340F PARENCHYMAL PATTERN: (D) - The breast(s) demonstrate(s) heterogeneously dense fibroglandular blanche coleman. BI-RADS CATEGORY: (0) - 0 Ultrasound [id number] Immediate follow-up LATERALITY: (L)
--- NOTE | 2023-03-03 12:30 | Ultrasound Report ---
LIMITED ULTRASOUND OF LEFT BREAST AND AXILLA: 03/03/2023 CLINICAL: Short term follow up for the left breast. Comparison is made to exams dated: 01/27/2018 ultrasound, 11/30/2008 mammogram, 01/14/2023 ultrasound, a nd 03/03/2023 mammogram - [facility]. Color flow and real-time ultrasound of the left breast axilla were performed. Gardner scale images of the real-time examination were reviewed. There are benign normal lymph nodes in the left axilla that correlate with clinical concern, triangle skin marker, and palpable abnormality. No significant abnormalities were seen sonographically in the left axilla. IMPRESSION: BENIGN There is no sonographic evidence of malignancy. Normal axillary lymph node correlating with palpable area of concern. Recommend clinical follow up for persistent or worsening symptoms, or development of any clinically s uspicious findings. Recommend initiating routine screening mammograms at age 40. Findings and recommendations were conveyed to the patient during today's evaluation. This exam was interpreted at Station ID: [id number]. Electronically Signed By: Jerson Ramirez M.D. aty/:03/03/2023 10:43:29 Ultrasound BI-RADS: 2 Benign BI-RADS CATEGORY: (2) - 2 RECOMMENDATION: (ADDMAM) - Recommend additional mammographic views. recall n/a LATERALITY: (B)
== END 2023-03-03 09:43 | disposition home or self-care (01) ==
LOC: DI 09:42
PROVIDERS: ATTEND Physician Assistant Medical
DX: R22.9 Localized swelling, mass and lump, unspecified (principal)